=== PATIENT | female | born 1960 | race Caucasian/White ===

== ENCOUNTER → 2021-02-25 16:38 | Outpatient (CLI) | payer BC, SELFPAY | PROVIDERS: Visit Provider Nurse Practitioner Family | DX: N39.0 Urinary tract infection, site not specified (principal); N94.9 Unspecified condition associated with female genital organs and menstrual cycle | CPT/HCPCS: 87086; 87210 ==

== ENCOUNTER → 2022-06-26 16:45 | Outpatient (CLI) | payer BC, SELFPAY ==
--- NOTE | 2022-06-26 16:48 | DI.US.S_ITS ---
PROCEDURE: US EXTREMITY NONVASC LOWER LT INDICATIONS: AREA LOWER LEFT LEG ERYTHEMIC PAINFUL TO TOUCH TECHNIQUE: Real-time scanning was performed of the left ankle, with image documentation. COMPARISON: None. FINDINGS: No significant sonographic abnormality is seen at the area of clinical concern adjacent to the left ankle. Subcutaneous tissues appear normal without increased vascularity or significant edema. No focal fluid collection. IMPRESSION: No significant sonographic abnormality. Approved by: Rodolfo Saavedra M.D. on 06/27/2022 at 11:11
== END ==
PROVIDERS: Referring Provider Nurse Practitioner Family; Visit Provider Nurse Practitioner Family
DX: M79.605 Pain in left leg (principal)
CPT/HCPCS: 76882

== ENCOUNTER 2024-07-18 12:30 | Emergency (ER) | payer BC, SELFPAY ==
--- NOTE | 2024-07-18 12:41 | DI.US.S_ITS ---
PROCEDURE: US PERIPH VENOUS LOW EXTREM RT INDICATIONS: leg pain TECHNIQUE: Real-time imaging, as well as color and pulse Doppler interrogation, were performed of the lower extremity deep veins from the inguinal ligament to the popliteal fossa, with documentation of the visualized calf veins. COMPARISON: None. FINDINGS: The common femoral, femoral, popliteal, and the visualized calf veins are normally compressible, and free of intraluminal thrombus. Color and pulse Doppler demonstrate normal phasic intraluminal flow. There is normal augmentation response to distal compression maneuver. A small perforating vein is seen at the area of concern connecting the superficial and deep venous systems. 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 IMPRESSION: 1. No findings of lower extremity deep venous thrombosis. 2. Small perforating vein with reflux in the calf at the area of clinical concern. Approved by: Rodolfo Saavedra M.D. on 07/18/2024 at 14:11
[2024-07-18 12:42] VITALS: BP 186/81; PULSE 63; RESP 17; TEMP 36.6; O2SAT 100; BMI 30.5
--- NOTE | 2024-07-18 15:05 | ED_ITS ---
HPI - Extremity Problem <Joann Pete PA-C - Last Filed: 07/18/24 15:23> General Chief complaint: Extremity Problem,Nontraumatic Stated complaint: rt calf muscle aches t-10, tingling/numbness foot Time Seen by Provider: 07/18/24 13:29 Source: patient Mode of arrival: Ambulatory History of Present Illness HPI Narrative: Ms. Pisano is an otherwise healthy 63-year-old female who presents to the emergency department for right calf pain x 10 days. Patient denies any trauma to the calf but describes a deep somewhat uncomfortable cramping like pain in the right calf that is worse with standing upright walking. Today she noticed after walking for long period of time that she felt a little bit of numbness in her right foot as well which prompted her emergency department arrival. Symptoms resolve when she rests or put her legs up but they are exacerbated by walking for a long amount of time. No history of blood clots, no swelling bruising redness fevers chills or color changes. Related Data Allergies Allergy/AdvReac Type Severity Reaction Status Date / Time aspirin Allergy Severe due to Verified 07/18/24 12:44 anaphalaxis rx to vioxx codeine Allergy Severe violent Verified 07/18/24 12:44 vomiting rofecoxib [From Vioxx] Allergy Severe Anaphylaxis Verified 07/18/24 12:44 Review of Systems <Joann Pete PA-C - Last Filed: 07/18/24 15:23> Review of Systems ROS Unobtainable: All systems reviewed & are unremarkable except as noted in HPI and below Patient History <Joann Pete PA-C - Last Filed: 07/18/24 15:23> Social History Smoking Status: Never smoker Smoking Status: Never smoker Alcohol type: wine Exam <Joann Pete PA-C - Last Filed: 07/18/24 15:23> Narrative Exam Narrative: GENERAL: 63 year old patient appears stated age. Well-developed patient, in no acute distress. HEAD: Atraumatic. Normocephalic. CARDIOVASCULAR: Regular rate RESPIRATORY: ?Nonlabored respirations. ?Speaking in clear, full sentences. ?. EXTREMITIES: No edema or joint tenderness, no color change, no redness streaking or erythema, no increased warmth, no calf swelling or tenderness. Strong DP and PT pulses bilaterally, brisk capillary refill, sensation intact to light touch in the dorsal and plantar aspect of the bilateral feet. NEURO: AOx3. ?Clear speech. ?Moves all 4 extremities appropriately. SKIN: No rash or erythema of visible areas Initial Vital Signs Initial Vital Signs: Vital Signs Temperature 98 F 07/18/24 12:42 Pulse Rate 63 07/18/24 12:42 Respiratory Rate 17 07/18/24 12:42 Blood Pressure 186/81 H 07/18/24 12:42 Pulse Oximetry 100 07/18/24 12:42 Oxygen Delivery Method Room Air 07/18/24 12:42 <DO Mario Tinoco Last Filed: 07/20/24 09:57> Initial Vital Signs Initial Vital Signs: Vital Signs Temperature 98 F 07/18/24 12:42 Pulse Rate 63 07/18/24 12:42 Respiratory Rate 17 07/18/24 12:42 Blood Pressure 186/81 H 07/18/24 12:42 Pulse Oximetry 100 07/18/24 12:42 Oxygen Delivery Method Room Air 07/18/24 12:42 Course <Joann Pete PA-C - Last Filed: 07/18/24 15:23> Orders Ordered: ED Orders 07/18/24 12:41 US periph venous low extrem rt Stat Vital Signs Vital signs: Vital Signs - 8 hr 07/18/24 12:42 Temperature 98 F Pulse Rate 63 Respiratory Rate 17 Blood Pressure 186/81 H Pulse Oximetry 100 Oxygen Delivery Method Room Air <DO Mario Tinoco Last Filed: 07/20/24 09:57> Orders Ordered: ED Orders 07/18/24 12:41 US periph venous low extrem rt Stat Vital Signs Vital signs: Vital Signs - 8 hr 07/18/24 12:42 Temperature 98 F Pulse Rate 63 Respiratory Rate 17 Blood Pressure 186/81 H Pulse Oximetry 100 Oxygen Delivery Method Room Air MDM - Extremity (Nontraumatic) <ALIN Guevara Last Filed: 07/18/24 15:23> Medical Records Attestation: I reviewed the patient's medical records. Imaging Data RLE Venous US: Radiologist's Impression: PROCEDURE: US PERIPH VENOUS LOW EXTREM RT INDICATIONS: leg pain TECHNIQUE: Real-time imaging, as well as color and pulse Doppler interrogation, were performed of the lower extremity deep veins from the inguinal ligament to the popliteal fossa, with documentation of the visualized calf veins. COMPARISON: None. FINDINGS: The common femoral, femoral, popliteal, and the visualized calf veins are normally compressible, and free of intraluminal thrombus. Color and pulse Doppler demonstrate normal phasic intraluminal flow. There is normal augmentation response to distal compression maneuver. A small perforating vein is seen at the area of concern connecting the superficial and deep venous systems. 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 IMPRESSION: 1. No findings of lower extremity deep venous thrombosis. 2. Small perforating vein with reflux in the calf at the area of clinical concern. MDM Narrative Medical decision making narrative: 63-year-old female who presents to the emergency department for right calf pain x 10 days, nontraumatic, she is concerned for blood clot. She is here with her who contributes to the history. Differential diagnosis includes but is not limited to DVT, muscle spasm, venous insufficiency, contusion, hematoma, etc. On exam patient is in no acute distress, nontoxic appearing, vital signs appropriate except for mildly elevated blood pressure. Her lower extremities are neurovascularly intact, subjective pain with ambulation of the right calf but no reproduction of pain on exam, no skin changes swelling or signs of infection. Lower extremity venous ultrasound was obtained revealing no findings of lower extremity deep venous thrombosis. She does have a small perforating vein with reflux in the calf of the area of clinical concern which is a good explanation of her symptoms at this time. Recommended incorporating compression socks, using them especially when standing or walking, rice therapy, follow up with PCP who can refer to pain specialist if needed. Patient verbalized understanding of all information, was provided copy with her ultrasound report, is agreeable to the plan and stable for discharge home. Discharge Plan Departure Patient Disposition: Home Clinical Impression: Venous reflux, Right calf pain Instructions: Venous Insufficiency (Alternative Therapy) Activity Restrictions/Additional Instructions: Dear Ms. Pisano, Thank you for coming to the emergency department. Today you were evaluated for right calf pain. Ultrasound of your lower leg revealed no blood clot, but it did show a small vein in the calf with some reflux. Please start wearing compression socks to help with blood flow and call to schedule an appointment with the primary care doctor for an emergency room follow up appointment who may refer you to a vein specialist if needed for persistent pain. Please follow up with your primary care doctor within the next 2-3 days for ER follow-up. (If you do not have a PCP you can call [phone]. ?to schedule an appointment with an [facility] Primary Care Provider) IF YOU DEVELOP ANY NEW OR WORSENING SYMPTOMS, RETURN TO THE ER! Please read the attached instructions, they highlight more specific treatments and interventions for you at home. Thank you for letting me participate in your care, Joann Pete PA-C Referrals: Miscellyeison,Doctor, [Primary Care Provider] - Stand Alone Forms: Patient Portal/API/Survey ED Sign-out <Nilda Castrejon DO - Last Filed: 07/20/24 09:57> Cosign ED Attending Lyndonature Attestation: I was available for consultation.
[2024-07-18 15:28] VITALS: BP 130/74; PULSE 62; RESP 18; O2SAT 98
== END 2024-07-18 15:30 | disposition home or self-care (01) ==
PROVIDERS: Emergency Provider Physician Assistant
DX: I87.2 Venous insufficiency (chronic) (peripheral) (principal); M79.661 Pain in right lower leg
CPT/HCPCS: 93971; 99281; 99283

== ENCOUNTER → 2024-07-27 14:12 | Outpatient (CLI) | payer BC, SELFPAY ==
[2024-07-27 15:58] LABS: BUN Creatinine Ratio 11.7 (6-22); Blood Urea Nitrogen 9 mg/dL (7-17); C-Reactive Protein Quant 0.7 mg/dL (<1.0); Estimated Glomerular Filt Rate > 60 mL/min (>60)
== END ==
PROVIDERS: PCP Internal Medicine; Referring Provider Ophthalmology; Visit Provider Ophthalmology
DX: H47.10 Unspecified papilledema (principal)
CPT/HCPCS: 36415; 82565; 84520; 86140

== ENCOUNTER 2024-07-28 17:22 | Emergency (ER) | payer BC, SELFPAY ==
[2024-07-28] VITALS (7 sets, daily range): BP systolic 132–152; BP diastolic 68–75; PULSE 64–70; RESP 16–29; TEMP 36.7; O2SAT 93–100; BMI 29.9
--- NOTE | 2024-07-28 17:43 | DI.RAD.S_ITS ---
PROCEDURE: XR CHEST 1V INDICATIONS: Possible stroke TECHNIQUE: One view of the chest was acquired. COMPARISON: None. FINDINGS: Surgical changes and devices: None. Lungs and pleura: Lungs are clear. No pleural effusions or pneumothorax. Mediastinum: Mediastinal contours appear normal. Heart size is normal. Bones and chest wall: No suspicious bony lesions. Overlying soft tissues appear unremarkable. IMPRESSION: No acute cardiopulmonary abnormality is seen. Dictated by: Bang Delgadillo M.D. on 07/28/2024 at 18:25 Approved by: Bang Delgadillo M.D. on 07/28/2024 at 18:25
--- NOTE | 2024-07-28 17:43 | EKG_ITS ---
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
--- NOTE | 2024-07-28 17:45 | DI.CT.S_ITS ---
PROCEDURE: CT HEAD/BRAIN WO CON INDICATIONS: ocular pressure/blurred vision TECHNIQUE: Noncontrast 4.5 mm thick angled axial sections acquired from the foramen magnum to the vertex, with coronal and sagittal reformats. For radiation dose reduction, the following was used: automated exposure control, adjustment of mA and/or kV according to patient size. COMPARISON: [facility], CT, CT ANGIO HEAD AND NECK, 07/28/2024, 18:08. FINDINGS: Image quality: Diagnostic. CSF spaces: Basal cisterns are patent. No extra-axial fluid collections. The ventricles are symmetric in size and shape. Brain: No intracranial bleeds or mass effect. There is cerebral volume loss, with resultant ventricular and sulcal prominence. There are periventricular and deep white matter chronic small vessel ischemic changes. There is intracranial internal carotid artery atherosclerosis. Skull and face: Calvarium and visualized facial bones appear intact, without suspicious lesions. In this patient with this given history, scrutiny is given to the orbits. No significant abnormalities of the globes or orbits can be seen. Sinuses: Visualized sinuses and mastoids are clear. IMPRESSION: No imaging explanation is found for this patient's presenting symptoms. No significant abnormality of the globes or orbits can be seen on this standard protocol noncontrast CT. To the limits of this noncontrast study, no findings of intracranial masses or mass effect can be seen. Dictated by: Nishant Luis M.D. on 07/28/2024 at 17:18 Approved by: Nishant Luis M.D. on 07/28/2024 at 17:19
--- NOTE | 2024-07-28 18:17 | DI.CT.S_ITS ---
PROCEDURE: CT ANGIO HEAD AND NECK INDICATIONS: ocular pressure/blurred vision TECHNIQUE: After the administration of intravenous contrast, 1 mm thick sections acquired from the aortic arch through the [place] of [place]. 3-dimensional hpdqqea-jxigmiyuo-czkyerzlxu (MIP) and/or volume rendering reformats were acquired of the central intracranial vasculature and neck separately. For radiation dose reduction, the following was used: automated exposure control, adjustment of mA and/or kV according to patient size. COMPARISON: [facility], CT, CT HEAD/BRAIN WO CON, 07/28/2024, 18:08. [facility], CR, XR CHEST 1V, 07/28/2024, 17:58. FINDINGS: Image quality: Limited by bolus timing, with venous contamination. There is artifact associated with the metallic hardware. Artifact from the metallic hardware is reduced by metal reconstruction algorithm. There is streak artifact seen through the level of the shoulders. BRAIN: CSF spaces: Ventricles are normal in size and shape. Basal cisterns are patent. No extra-axial fluid collections. Brain: No significant abnormality of the brain can be seen. Skull and face: Calvarium and facial bones appear intact, without suspicious lesions. No significant abnormality of the orbits can be seen. No masses or abnormal enhancement can be seen. Sinuses: Sinuses and mastoids are clear. HEAD CT ANGIOGRAPHY: Anterior circulation: Intracranial internal carotid arteries are normal in size and flow. The flow within the paired anterior cerebral arteries is normal and symmetric. The flow within the middle cerebral arteries is normal and symmetric. The anterior communicating artery is seen. No aneurysms are seen. Posterior circulation: Visualized portions of the vertebral arteries demonstrate normal caliber, and join to form a normal appearing basilar artery. There is a prominent right posterior communicating artery seen, with an accompanying diminutive right P1 segment. This is attributed to a type origin of the right posterior cerebral artery, which is considered to be a normal developmental variant of typically no clinical consequence. The flow within the posterior cerebral arteries is normal and symmetric. No aneurysms are seen. NECK CT ANGIOGRAPHY: Carotid system: The great vessels demonstrate a conventional anatomy as they arise from the aortic arch. The origins of the common carotid arteries appear patent. The common carotid arteries demonstrate normal caliber and courses. The bifurcation regions are both widely patent. The internal carotid arteries demonstrate normal calibers and courses. Posterior circulation: The origins of the vertebral arteries both appear widely patent. The more superior extracranial portions of both vertebral arteries also demonstrate normal courses and calibers. The left vertebral artery is dominant to the right. Soft tissues: Visualized neck soft tissues demonstrate no suspicious abnormalities. Bones: No suspicious bony lesions. Visualized cervical spine appears normally aligned. IMPRESSION: No significant intracranial arterial abnormality is seen. No significant abnormality is seen within the arteries of the neck. Any quantitative measurements of stenosis were performed using NASCET criteria. Dictated by: Nishant Luis M.D. on 07/28/2024 at 17:20 Approved by: Nishant Luis M.D. on 07/28/2024 at 17:22
[2024-07-28 18:23] LABS: Prothrombin Time 11.3 SECONDS (9.4-12.5)
[2024-07-28 18:24] LABS: Add Manual Diff / Slide Review NO; Basophils Absolute Auto 100 /uL (0-100); Basophils Percent Auto 1.1 % (0-2); Eosinophils Absolute Auto 100 /uL (0-450); Eosinophils Percent Auto 1.5 % (2-4); Hematocrit 42.7 % (36-46); Hemoglobin 14.1 g/dL (12.0-16.0); Lymphocytes Absolute Auto 3200 /uL (1100-4500); Lymphocytes Percent Auto 45.7 % (25-40); Mean Corpuscular Hemoglobin 30.4 PG (26-34); Mean Corpuscular Volume 92.2 fL (80-100); Monocytes Absolute Auto 400 /uL (0-900); Monocytes Percent Auto 6.1 % (3-14); Neutrophils Absolute Auto 3200 /uL (1500-7000); Neutrophils Percent Auto 45.6 % (50-75); Platelet Count 278 X10^3/uL (150-400); Red Blood Cell Count 4.64 X10^6/uL (4.0-5.2); Red Cell Distribution Width 13.9 % (11.6-14.8)
[2024-07-28 18:26] LABS: PTT Partial Thromboplastin Tim 36 SECONDS (25.1-36.5)
[2024-07-28 18:30] LABS: Alanine Aminotransferase 26 IU/L (<35); Albumin 4.9 g/dL (3.5-5.0); Albumin Globulin Ratio 1.6 (1.0-2.8); Alkaline Phosphatase 76 U/L (38-126); Aspartate Aminotransferase 34 IU/L (14-36); BUN Creatinine Ratio 14.8 (6-22); Bilirubin Total 0.6 mg/dL (0.2-1.3); Blood Urea Nitrogen 12 mg/dL (7-17); Calcium 9.4 mg/dL (8.4-10.2); Carbon Dioxide 29 mmol/L (22-32); Chloride 104 mmol/L (98-107); Creatine Kinase 82 U/L (30-135); Estimated Glomerular Filt Rate > 60 mL/min (>60); Glucose 96 mg/dL (70-99); HEMOLYSIS < 15 (0-50); Sodium 142 mmol/L (137-145); Total Protein 7.9 g/dL (6.3-8.2)
[2024-07-28 18:40] LABS: Troponin I < 0.012 ng/mL (0.01-0.034)
--- NOTE | 2024-07-28 19:03 | ED_ITS ---
HPI - Neuro Symptoms/Deficit General Chief Complaint: Neuro Symptoms/Deficit Stated Complaint: left eye, optical nerve swelling sent by doctor Time Seen by Provider: 07/28/24 19:03 Source: patient Mode of arrival: Ambulatory History of Present Illness HPI Narrative: 63-year-old female no significant past medical history comes into the ED from home for evaluation of persistent left eye blurriness. She states that she has been in contact with an eye doctor does have a scheduled MRI tomorrow of her eyes however she states that she was instructed to come into the ED to get a CT head and CTA head and neck to evaluate for possible ischemia. She states that the blurriness seems a little ?different than it has been but denies any actual visual loss denies any trauma or falls not on any blood thinners denies any other symptoms at this time. She states that the difference in her blurry vision is the fact that she feels like there is a pressure her eye. On Anticoagulants: No Related Data Allergies Allergy/AdvReac Type Severity Reaction Status Date / Time aspirin Allergy Severe due to Verified 07/28/24 17:30 anaphalaxis rx to vioxx codeine Allergy Severe violent Verified 07/28/24 17:30 vomiting rofecoxib [From Vioxx] Allergy Severe Anaphylaxis Verified 07/28/24 17:30 NSAIDS (Non-Steroidal Allergy Verified 07/28/24 17:30 Anti-Inflamma Review of Systems Review of Systems Narrative: General: Denies fever, chills, weight loss HEENT: Left eye blurry vision Denies headache, eye drainage, eye irritation, head trauma, sore throat, voice change Cardiovascular: Denies any chest pain, palpitations, tachycardia Respiratory: Denies any shortness of breath, cough, wheeze, stridor GI/: Denies any abdominal pain, nausea, vomiting, diarrhea, bright red blood per rectum, melanotic stools, urinary frequency, urinary retention, dysuria, hematuria MSK: Denies any joint pain, muscle pains, swelling Skin: Denies any rashes, lesions, discoloration Neuro: Denies any headache, lightheadedness, dizziness, fainting, weakness Psych: Denies SI/HI Hematologic/Lymphatic On Anticoagulants: No Patient History Smoking Status: Never smoker Alcohol type: wine Exam Narrative Exam Narrative: General: Cooperative, well-developed, not in acute distress HEENT: Normocephalic, atraumatic, PERRLA, normal sclera, eyelids normal Neck: Active full range of motion, atraumatic Chest: Normal to inspection, negative crepitus, no overlying erythema ecchymosis Respiratory: Normal respiratory effort, not in acute respiratory distress, clear to auscultation bilaterally negative cough, wheeze, tachypnea, rhonchi, rales Cardiology: Regular rate rhythm negative gallop, murmur, rubs GI/: No tenderness to palpation, soft, non rigid, normal to inspection, exam deferred MSK: Full active range of motion in all 4 extremities, atraumatic, no tenderness to palpation of any bony prominences Skin: No rashes or lesions noted Neuro: Alert awake oriented x3, moves all 4 extremities spontaneously, cranial nerves intact, able to answer all questions appropriately follows commands appropriately Psych: Cooperative, negative suicidal or homicidal ideations Initial Vital Signs Initial Vital Signs: Vital Signs Temperature 98.1 F 07/28/24 17:31 Pulse Rate 64 07/28/24 17:31 Respiratory Rate 16 07/28/24 17:31 Blood Pressure 133/72 07/28/24 17:31 Pulse Oximetry 98 07/28/24 17:31 Oxygen Delivery Method Room Air 07/28/24 17:31 Course Orders Ordered: ED Orders 07/28/24 17:43 XR chest 1V Stat EKG-12 Lead Stat 07/28/24 17:45 CT head/brain wo con Stat 07/28/24 18:00 Complete Blood Count AUTO DIFF Stat Comprehensive Metabolic Panel Stat PTT Partial Thromboplastin Matti Stat Prothrombin Time INR Stat Troponin & CK Cardiac Panel Stat 07/28/24 18:17 CT angio head and neck Stat Ondansetron HCl (Ondansetron 4 Mg/2 Ml Inj) 4 mg IV NOW PRN PRN Reason: Nausea And Vomiting Ondansetron HCl (Ondansetron 4 Mg Odt) 4 mg PO NOW PRN PRN Reason: Nausea And Vomiting Vital Signs Vital signs: Vital Signs - 8 hr 07/28/24 17:31 Temperature 98.1 F Pulse Rate 64 Respiratory Rate 16 Blood Pressure 133/72 Pulse Oximetry 98 Oxygen Delivery Method Room Air MDM - Neuro Symptoms/Deficit Differential Diagnosis Differential diagnosis: Likely other (CVA, intracranial hemorrhage, electrolyte abnormality) Lab Data 07/28/24 18:00 07/28/24 18:00 Labs: Lab Results 07/28/24 Range/Units 18:00 WBC 7.0 (4.5-11.0) X10^3/uL RBC 4.64 (4.0-5.2) X10^6/uL Hgb 14.1 (12.0-16.0) g/dL Hct 42.7 (36-46) % MCV 92.2 (80-100) fL MCH 30.4 (26-34) PG MCHC 33.0 (30-36) % RDW 13.9 (11.6-14.8) % Plt Count 278 (150-400) X10^3/uL Neut % (Auto) 45.6 L (50-75) % Lymph % (Auto) 45.7 H (25-40) % [place] % (Auto) 6.1 (3-14) % Eos % (Auto) 1.5 L (2-4) % Baso % (Auto) 1.1 (0-2) % Neut # (Auto) 3200 (0512-5877) /uL Lymph # (Auto) 3200 (1122-6412) /uL [place] # (Auto) 400 (0-900) /uL Eos # (Auto) 100 (0-450) /uL Baso # (Auto) 100 (0-100) /uL PT 11.3 (9.4-12.5) SECONDS INR 1.0 (0.9-1.3) APTT 36 (25.1-36.5) SECONDS Sodium 142 (137-145) mmol/L Potassium 4.0 (3.4-5.1) mmol/L Chloride 104 (98-107) mmol/L Carbon Dioxide 29 (22-32) mmol/L BUN 12 (7-17) mg/dL Creatinine 0.81 (0.52-1.04) mg/dL Estimated GFR > 60 (>60) mL/min BUN/Creatinine Ratio 14.8 (6-22) Glucose 96 (70-99) mg/dL Calcium 9.4 (8.4-10.2) mg/dL Total Bilirubin 0.6 (0.2-1.3) mg/dL AST 34 (14-36) IU/L ALT 26 (<35) IU/L Alkaline Phosphatase 76 (38-126) U/L Total Creatine Kinase 82 (30-135) U/L Troponin I < 0.012 (0.01-0.034) ng/mL Total Protein 7.9 (6.3-8.2) g/dL Albumin 4.9 (3.5-5.0) g/dL Globulin 3.0 (1.7-4.1) g/dL Albumin/Globulin Ratio 1.6 (1.0-2.8) Point of Care Testing Glucose POC 98 Urine Dip Bedside Urine Glucose Negative Bedside Urine Bilirubin - Negative Bedside Urine Ketone - Negative Urine Specific [place] 1.010 Bedside Urine Occult Blood - Negative Bedside Urine pH 6.0 Bedside Urine Protein - Negative Bedside Urine Urobilinogen - Negative Bedside Urine Nitrite - Negative Bedside Urine Leukocytes - Negative Esterase Imaging Data CT scan - head: Radiologist's Impression: [address] [address] [address] Scan Report Signed Patient: Susan Pisano MR#: [id number] : 1960 Acct:[id number] Age/Sex: 63 / F Date of Service: 07/28/24 Loc: ED Accession Number: [id number] Procedure: CT head/brain wo con Ordering Provider: Joby Sancehz MD PROCEDURE: CT HEAD/BRAIN WO CON INDICATIONS: ocular pressure/blurred vision TECHNIQUE: Noncontrast 4.5 mm thick angled axial sections acquired from the foramen magnum to the vertex, with coronal and sagittal reformats. For radiation dose reduction, the following was used: automated exposure control, adjustment of mA and/or kV according to patient size. COMPARISON: [facility], CT, CT ANGIO HEAD AND NECK, 07/28/2024, 18:08. FINDINGS: Image quality: Diagnostic. CSF spaces: Basal cisterns are patent. No extra-axial fluid collections. The ventricles are symmetric in size and shape. Brain: No intracranial bleeds or mass effect. There is cerebral volume loss, with resultant ventricular and sulcal prominence. There are periventricular and deep white matter chronic small vessel ischemic changes. There is intracranial internal carotid artery atherosclerosis. Skull and face: Calvarium and visualized facial bones appear intact, without suspicious lesions. In this patient with this given history, scrutiny is given to the orbits. No significant abnormalities of the globes or orbits can be seen. Sinuses: Visualized sinuses and mastoids are clear. IMPRESSION: No imaging explanation is found for this patient's presenting symptoms. No significant abnormality of the globes or orbits can be seen on this standard protocol noncontrast CT. To the limits of this noncontrast study, no findings of intracranial masses or mass effect can be seen. CTA - brain/neck: Radiologist's Impression: [address] [address] [address] Scan Report Signed Patient: Susan Pisano MR#: [id number] : 1960 Acct:[id number] Age/Sex: 63 / F Date of Service: 07/28/24 Loc: ED Accession Number: [id number] Procedure: CT angio head and neck Ordering Provider: Joby Sanchez MD PROCEDURE: CT ANGIO HEAD AND NECK INDICATIONS: ocular pressure/blurred vision TECHNIQUE: After the administration of intravenous contrast, 1 mm thick sections acquired from the aortic arch through the [place] of [place]. 3-dimensional byxxxtg-tmewadvyt-bkfxdyzaxy (MIP) and/or volume rendering reformats were acquired of the central intracranial vasculature and neck separately. For radiation dose reduction, the following was used: automated exposure control, adjustment of mA and/or kV according to patient size. COMPARISON: [facility], CT, CT HEAD/BRAIN WO CON, 07/28/2024, 18:08. [facility], CR, XR CHEST 1V, 07/28/2024, 17:58. FINDINGS: Image quality: Limited by bolus timing, with venous contamination. There is artifact associated with the metallic hardware. Artifact from the metallic hardware is reduced by metal reconstruction algorithm. There is streak artifact seen through the level of the shoulders. BRAIN: CSF spaces: Ventricles are normal in size and shape. Basal cisterns are patent. No extra-axial fluid collections. Brain: No significant abnormality of the brain can be seen. Skull and face: Calvarium and facial bones appear intact, without suspicious lesions. No significant abnormality of the orbits can be seen. No masses or abnormal enhancement can be seen. Sinuses: Sinuses and mastoids are clear. HEAD CT ANGIOGRAPHY: Anterior circulation: Intracranial internal carotid arteries are normal in size and flow. The flow within the paired anterior cerebral arteries is normal and symmetric. The flow within the middle cerebral arteries is normal and symmetric. The anterior communicating artery is seen. No aneurysms are seen. Posterior circulation: Visualized portions of the vertebral arteries demonstrate normal caliber, and join to form a normal appearing basilar artery. There is a prominent right posterior communicating artery seen, with an accompanying diminutive right P1 segment. This is attributed to a type origin of the right posterior cerebral artery, which is considered to be a normal developmental variant of typically no clinical consequence. The flow within the posterior cerebral arteries is normal and symmetric. No aneurysms are seen. NECK CT ANGIOGRAPHY: Carotid system: The great vessels demonstrate a conventional anatomy as they arise from the aortic arch. The origins of the common carotid arteries appear patent. The common carotid arteries demonstrate normal caliber and courses. The bifurcation regions are both widely patent. The internal carotid arteries demonstrate normal calibers and courses. Posterior circulation: The origins of the vertebral arteries both appear widely patent. The more superior extracranial portions of both vertebral arteries also demonstrate normal courses and calibers. The left vertebral artery is dominant to the right. Soft tissues: Visualized neck soft tissues demonstrate no suspicious abnormalities. Bones: No suspicious bony lesions. Visualized cervical spine appears normally aligned. IMPRESSION: No significant intracranial arterial abnormality is seen. No significant abnormality is seen within the arteries of the neck. Any quantitative measurements of stenosis were performed using NASCET criteria. Chest x-ray: Radiologist's Impression: [place] [address] XRay Report Signed Patient: Susan Pisano MR#: [id number] : 1960 Acct:[id number] Age/Sex: 63 / F Date of Service: 07/28/24 Loc: ED Accession Number: [id number] Procedure: XR chest 1V Ordering Provider: Joby Sanchez MD PROCEDURE: XR CHEST 1V INDICATIONS: Possible stroke TECHNIQUE: One view of the chest was acquired. COMPARISON: None. FINDINGS: Surgical changes and devices: None. Lungs and pleura: Lungs are clear. No pleural effusions or pneumothorax. Mediastinum: Mediastinal contours appear normal. Heart size is normal. Bones and chest wall: No suspicious bony lesions. Overlying soft tissues appear unremarkable. IMPRESSION: No acute cardiopulmonary abnormality is seen. ECG Data Interpretation: EKG interpreted by ED physician sinus 66 beats per minute QTC [address] changes no STEMI MDM Narrative Medical decision making narrative: 63-year-old female without any significant past medical history presenting for eye blurriness/pressure of left eye, states it has been ongoing persistent for the past few days did see ophthalmology is currently scheduled for MRI and follow up with [place], states this is all tomorrow, however she states that she felt more pressure to her left eye denies worsening blurriness or loss of vision she denies any recent trauma or falls not on any blood thinners she states that she called the office and was instructed come into the ED for further evaluation treatment. She states that she just saw them yesterday. Here CT scan scans without any acute findings, chest x-ray without any acute cardiopulmonary abnormality EKG nonischemic in nature lab work unremarkable we will give dose of steroids given the fact that patient states that she was told that she does have edema to her optic nerve, she was instructed to follow up with her scheduled appointments she was given strict return precautions verbalized understanding of this and agrees to being discharged home with outpatient follow up Discharge Plan Departure Patient Disposition: Home Clinical Impression: Blurred vision, left eye Activity Restrictions/Additional Instructions: Please read the discharge instructions sheet carefully and bring all papers to all doctor follow-up visits, as it may contain information that your doctor may want to see. Disease processes change and evolve, if your symptoms worsen or if you develop any new symptoms that are concerning to you please return for evaluation. Your evaluation today does not show any evidence of any life- threatening/serious illnesses requiring admission to the hospital or surgery. Please follow-up with your doctor for re-evaluation in approximately 1 day. Seek immediate medical attention for any worrisome symptoms. *If you do not have a primary care provider please contact the [facility] Resource line at [phone]. They will ask some questions about your medical history and help get you set up with a doctor in the community. Referrals: Laura Christopher MD [Primary Care Provider] - Stand Alone Forms: Patient Portal/API/Survey
[2024-07-28] MEDS: methylPREDNISolone 125 MG/2 ML VIAL IV (19:31)
== END 2024-07-28 19:43 | disposition home or self-care (01) ==
PROVIDERS: Emergency Medicine; Emergency Provider Student in an Organized Health Care Education/Training Program; PCP Internal Medicine
DX: H53.8 Other visual disturbances (principal); H57.12 Ocular pain, left eye
CPT/HCPCS: 36415; 70450; 70496; 70498; 71045; 80053; 81003; 82550; 82962; 84484; 85025; 85610; 85730; 93005; 93010; 96374; 99284; 99285; J2919; Q9967

== ENCOUNTER → 2024-07-29 12:37 | Outpatient (CLI) | payer BC, SELFPAY ==
--- NOTE | 2024-07-29 12:46 | DI.MRI.S_ITS ---
PROCEDURE: MR ORBIT WO/W CON COMPARISON: None. INDICATIONS: UNSPECIFIED PAPILLEDEMA FINDINGS: Bony orbits: Unremarkable marrow signal. Orbital contents: Orbital globes, extraocular muscles, and retro-bulbar fat are unremarkable. Both optic nerves and the optic nerve sheaths appropriate morphology. The lacrimal glands are normal in size and enhancement. Sinuses: Artifact arising from dental metallic hardware noted involving the left maxillary sinus as well as failure of fat suppression on the inferior aspect of the left orbit Extraorbital soft tissues: Unremarkable. No preseptal edema or soft tissue swelling. Other: Visualized portions of the brain show mild atrophy and white matter chronic ischemic change. No acute infarct or hemorrhage. Diffusion sequence normal. Ventricles unremarkable without hydrocephalus. No extra-axial fluid collections.. IMPRESSION: Unremarkable MRI of the brain and orbits. No evidence of acute infarct, hemorrhage or mass lesion. Orbital globes, optic nerves and ocular muscles unremarkable. Approved by: Nelson Vega M.D. on 07/29/2024 at 15:44
--- NOTE | 2024-07-29 12:47 | DI.US.S_ITS ---
PROCEDURE: US CAROTID DOPPLER BI INDICATIONS: UNSPECIFIED PAPILLEDEMA TECHNIQUE: Color and pulse Doppler interrogation was performed of both carotid systems, with image documentation and velocity measurements. COMPARISON: [facility], CT, CT ANGIO HEAD AND NECK, 07/28/2024, 18:08. FINDINGS: Stenosis calculations are based on SRU (Society of Radiologists in Ultrasound) criteria. Right side: Brachial blood pressure: 121/76 mm Hg. Common carotid artery peak systolic velocity: 84 cm/sec. Internal carotid artery peak systolic velocity: 123 cm/sec. Internal carotid artery end diastolic velocity: 41 cm/sec. External carotid artery peak systolic velocity: 130 cm/sec. ICA/CCA peak systolic ratio: 1.5 [place]ined[place] scale imaging description: Normal. Percent internal carotid artery stenosis: Less than 50% by velocity criteria. Vertebral artery: Flow direction is antegrade. Left side: Brachial blood pressure: 118/80 mm Hg. Common carotid artery peak systolic velocity: 93 cm/sec. Internal carotid artery peak systolic velocity: 152 cm/sec. Internal carotid artery end diastolic velocity: 48 cm/sec. External carotid artery peak systolic velocity: 122 cm/sec. ICA/CCA peak systolic ratio: 1.6 Pineda scale imaging description: Normal. Percent internal carotid artery stenosis: 50-69% by velocity criteria. Vertebral artery: Flow direction is antegrade. IMPRESSION: By velocity criteria, there is a moderate stenosis (between 50 and 69% stenosis) within the left proximal internal carotid artery. The true degree of stenosis is felt most likely to be at the lower end of this range. Dictated by: Nishant Luis M.D. on 07/29/2024 at 12:55 Approved by: Nishant Luis M.D. on 07/29/2024 at 12:56
== END ==
PROVIDERS: PCP Internal Medicine; Referring Provider Ophthalmology; Visit Provider Ophthalmology
DX: H47.10 Unspecified papilledema (principal); I65.22 Occlusion and stenosis of left carotid artery
CPT/HCPCS: 70543; 93880; A9579